=== PATIENT | male | born 1975 | race Caucasian/White ===

== ENCOUNTER 2021-02-28 09:15 | Day surgery (SDC) | payer OTHER ==
[~2021-02-28] VITALS: Ht 175.3 cm; Wt 92.0 kg
[~2021-02-28 09:15] MED LIST: Ativan1 MG PO; Prinivil10 MG PO
[2021-02-28 10:30] LABS: SARS-Cov-2 (COVID-19) PCR, MMC NEGATIVE (NEGATIVE)
--- NOTE | 2021-02-28 12:25 | NUR ---
RIGHT RADIAL SITE SOFT,NO BLEEDING, NO HEMATOMA AT SITE. TR BAND IN PLACE. WRIST BOARD IN PLACE.
--- NOTE | 2021-02-28 12:44 | NUR ---
RIGHT WRIST SITE UNCHANGED. TR BAND IN PLACE. WRIST BOARD IN PLACE.
== END 2021-02-28 14:30 | disposition home or self-care (01) ==
LOC: MHTC 09:15
PROVIDERS: Internal Medicine Cardiovascular Disease
DX: I47.2 Ventricular tachycardia (principal); R07.9 Chest pain, unspecified; I10 Essential (primary) hypertension; Z82.49 Family history of ischemic heart disease and other diseases of the circulatory system; Z20.822 Contact with and (suspected) exposure to COVID-19
CPT/HCPCS: 76937; 93454; 99152; 99153; C1769; C1887; C1894; J1644; J2250; J3010; J7030; J7050; Q9967; U0004